=== PATIENT | male | born 1970 | race Caucasian/White ===

== ENCOUNTER 2017-02-16 19:53 | Emergency (ER) | payer OTHER ==
[~2017-02-16] VITALS: Ht 182.9 cm; Wt 104.3 kg
[2017-02-16 20:11] VITALS: BP 136/81
--- NOTE | 2017-02-16 20:32 | ED ANKLE/FOOT INJURY COMPLAINT ---
History of Present Illness General Chief Complaint: Foot or Ankle Injury Stated Complaint: RIGHT FOOT INJURY, S/P PLAYING FOOTBALL Source: patient, old records Exam Limitations: no limitations Vital Signs & Intake/Output Vital Signs & Intake/Output Vital Signs Date Time Temp Pulse Resp B/P B/P Pulse O2 O2 Flow FiO2 Mean Ox Delivery Rate 02/16 2011 98.1 50 20 136/81 97 Room Air Allergies Coded Allergies: No Known Allergies (02/16/17) Triage Note: TRIAGE: PT TO ER C/C R GREAT TOE PAIN AND SWELLING S/P INJURY LAST NIGHT. STATES HE TWISTED HIS TOE PLAYING FOOTBALL. CONCERNED ABOUT FX. HAS BEEN ICING IT. REFUSES OFFERED PAIN MEDS AT TRIAGE. Triage Nurses Notes Reviewed? yes Occurred: yesterday Duration: day(s): (2), constant Timing: recent history Severity: mild, moderate Severity Numbers: 6 Pain/Injury Location: Right: 1st toe. Method of Injury: sports injury Modifying Factors: Improves With: rest. Worsens With: movement. Associated Symptoms: none HPI: 46-year-old male presents to ER for evaluation complaining of medial right first toe pain and swelling after he states he twisted his toe while playing football last night. The patient denies radiation the pain he has a history of a Lisfranc injury to the right foot in the past or current surgery. He denies any other foot toe or ankle pain no difficulty with weightbearing is not taken anything for symptoms no modifying factors or associated symptoms otherwise. (BRYNN KNIGHT) Past History Travel History Traveled to [place] past 21 day No Medical History Any Pertinent Medical History? 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 No (BRYNN KNIGHT) Review of Systems Review of Systems Constitutional: Reports: see HPI. All Other Systems: Reviewed and Negative Comments Review of systems: See HPI, All other systems negative. Constitutional, no chills no fever, no malaise HEENT: No visual changes no sore throat no congestion Cardiovascular: No chest pain , no palpitation Skin: no rashes, no change in skin Respiratory: No dyspnea no cough no sputum GI: No nausea no vomiting, no diarrhea, Muscle skeletal: joint pain, no joint swelling, no back pain, no neck pain, Neurologic: No numbnes, no headache Psych: No stress Heme/endocrine: No bruising Immunology: No lymphadenopathy (BRYNN KNIGHT) Physical Exam Physical Exam General Appearance: well developed/nourished, no apparent distress, alert, awake Leg/Knee/Thigh Left: normal range of motion Comments: Well-developed well-nourished patient in no apparent distress. HEENT: Atraumatic, extraocular motion intact Neck: Supple, FROM Back: FROM Cardiovascular: Regular rate and rhythms no murmurs Respiratory: No respiratory distress. Patient speaking in full complete sentences. Breath sounds clear to auscultation bilaterally: NO W/R/R Upper Extremities: full range of motion Hip/Pelvis: Atraumatic/Stable. FROM. Knee: Atraumatic/stable. FROM. Leg: Atraumatic. Nontender. No edema, 5 out of 5 strength in the lower extremity, normal dorsiflexion of great toe bilaterally, gross sensation is intact Ankle/Foot: Atraumatic/stable. Skin intact. FROM. No swelling, no effusion. No laxity on exam Pulses: Normal/equal DP/PT pulses bilaterally. Brisk cap refill, no ecchymosis Neuro: awake, alert, and oriented to person, place and time. There were no obvious focal neurologic abnormalities. Skin: Warm & dry;No appreciable rash on exposed skin Psych: Mood affect normal, normal memory normal judgment. (BRYNN KNIGHT) Progress Differential Diagnosis: gout, fracture, dislocation, sprain, contusion Plan of Care: Orders Procedure Date/time Status XRY-TOES, RIGHT 02/16 2014 Active X-rays ordered from triage I discussed with the patient at length all of their results. I had an extensive conversation regarding need for close follow up with their primary care physician this week as well as return precautions. I answered all of their questions, they feel comfortable with the plan and follow-up care. (BRYNN KNIGHT) Diagnostic Imaging: Viewed by Me: Radiology Read. Discussed w/RAD: Radiology Read. Radiology Impression: PATIENT: LENO FONTAINE PRESENT AGE: 46 PATIENT ACCOUNT NO: [id number] : 72 LOCATION: [facility] ORDERING PHYSICIAN: BRYNN NEGRO SERVICE DATE: 02/16/17 EXAM TYPE: RAD - XRY- TOES, RIGHT EXAMINATION: XR TOES, RIGHT CLINICAL INFORMATION: Right first digit swelling. COMPARISON: 03/08/2011. TECHNIQUE: An AP view of the right foot is provided along with 3 views of the first digit. FINDINGS: There are no fractures or dislocations. There is soft tissue swelling to the first digit. IMPRESSION: Soft tissue swelling without fracture or dislocation. DICTATED BY: LIZ CHAPMAN MD DATE/TIME DICTATED:02/16/172046 SPIKE DRIVER:URIAH DATE/TIME TRANSCRIBED:02/16/172046 CONFIDENTIAL, DO NOT COPY WITHOUT APPROPRIATE AUTHORIZATION. <Electronically signed in Other Vendor System> SIGNED BY: LIZ CHAPMAN MD 02/16/172054 (BRYNN KNIGHT) Departure Departure Time of Disposition: 2102 Disposition: HOME OR SELF CARE Condition: Stable Clinical Impression Primary Impression: Toe sprain Referrals: UNKNOWN (PCP/Family) Additional Instructions: rest,ice, elevate foot, tylenol or ibuprofen eveyr 6-8 hours. wear shoes/boots with good support. follow up with your pmd, return with any concerns Departure Forms: Customer Survey General Discharge Information (BRYNN KNIGHT) PA/KENNEL KEEPER Co-Sign Statement Statement: ED Attending supervision documentation- [] I saw and evaluated the patient. I have also reviewed all the pertinent lab results and diagnostic results. I agree with the findings and the plan of care as documented in the PA's/KENNEL KEEPER's documentation. [X] I have reviewed the ED Record and agree with the PA's/KENNEL KEEPER's documentation. [] Additions or exceptions (if any) to the PAs/KENNEL KEEPER's note and plan are summarized below: [] (JAKE GLASGOW,USHA Fry)
--- NOTE | 2017-02-16 20:55 | RADIOLOGY REPORT ---
EXAMINATION: XR TOES, RIGHT CLINICAL INFORMATION: Right first digit swelling. COMPARISON: 03/08/2011. TECHNIQUE: An AP view of the right foot is provided along with 3 views of the first digit. FINDINGS: There are no fractures or dislocations. There is soft tissue swelling to the first digit. IMPRESSION: Soft tissue swelling without fracture or dislocation.
== END 2017-02-16 21:05 ==
LOC: ERH 19:53
DX: S93.501A Unspecified sprain of right great toe, initial encounter (principal); X50.9XXA Other and unspecified overexertion or strenuous movements or postures, initial encounter; Y93.61 Activity, american tackle football; Y92.9 Unspecified place or not applicable
CPT/HCPCS: 73660-RT